=== PATIENT | female | born 1985 ===

== ENCOUNTER → 2025-09-03 08:18 | Outpatient (CLI) | payer OTHER, SELFPAY ==
--- NOTE | 2025-09-03 08:20 | DI.US.S_ITS ---
PROCEDURE: US PELVIC COMPLETE INDICATIONS: MENORRHAGIA TECHNIQUE: Real-time scanning was performed of the pelvic organs, with image documentation. Additional endovaginal scanning was necessary due to incomplete visualization of the adnexal and endometrial structures by transabdominal scanning. COMPARISON: None. FINDINGS: Uterus: Uterus is anteverted and normal in size at 10.5 x 4.3 x 5.4 cm. The myometrium is homogeneous. The endometrium measures 9 mm combined thickness. Ovaries: The right ovary measures 2.8 x 1.6 x 4.2 cm, with a calculated ovarian volume of 9.9 cc. Right ovarian simple cyst measuring 1.8 x 1.1 x 2.3 cm. The left ovary measures 2.4 x 1.6 x 2.3 cm, with a calculated ovarian volume of 4.5 cc. The ovaries have a normal sonographic appearance. Less than 12 follicles can be seen in each ovary. No adnexal masses are seen. Other: No pathologic free abdominal or pelvic fluid. IMPRESSION: Simple right ovarian cyst measuring 2.3 cm. Otherwise, normal appearance of the uterus and ovaries. We strive to produce accurate, complete, and clear reports of imaging services. To assist us in improving patient care, this report was composed using standard report templates and voice recognition software. Therefore, it may contain abnormal punctuation, insertions and/or omissions. Occasional wrong-word or sound-alike substitutions may occur. Though we review the report and make efforts to correct it, we do recommend that the report be read carefully in proper context to recognize any text inaccuracies. Dictated by: Vargas Osuna M.D. on 09/03/2025 at 10:57 Approved by: Vargas Osuna M.D. on 09/03/2025 at 10:58
== END ==
LOC: US 08:19
PROVIDERS: Family Provider Family Medicine; PCP Family Medicine; Referring Provider Family Medicine; Visit Provider Family Medicine
DX: N92.0 Excessive and frequent menstruation with regular cycle (principal); N83.201 Unspecified ovarian cyst, right side; R63.5 Abnormal weight gain; E28.2 Polycystic ovarian syndrome; L67.8 Other hair color and hair shaft abnormalities; R53.83 Other fatigue
CPT/HCPCS: 76830; 76856